=== PATIENT | male | born 1970 | race African-American/Black ===

== ENCOUNTER 2018-10-30 03:54 | Inpatient (IN) | payer SELFPAY ==
[2018-10-30] MEDS ORDERED: Nitroglycerin 2% Ointment 1 INCH/1 GM Packet ONE (04:36)
[2018-10-30] MEDS ORDERED: Nitroglycerin 0.4 MG TAB (25 Tab Bottle) ONE (04:36)
[2018-10-30 05:13] LABS: #Basophils 0.1 thou/uL (0.0-0.2); #Eosinphils 0.2 thou/uL (0.0-0.7); #Lymphocytes 2.6 thou/uL (1.20-3.40); #Monocytes 0.7 thou/uL (0.11-0.59); %Basophils 0.6 % (0.0-1.0); %Eosinophils 1.8 % (0.0-10.0); %Lymphocytes 22.5 % (21.0-51.0); %Monocytes 5.7 % (0.0-10.0); %Neutrophils 69.4 % (42.0-75.0); Hemoglobin 15.2 g/dL (14.0-18.0); Mean Corpuscular HGB CONC 33.1 g/dL (32.0-36.0); Mean Corpuscular Hemoglobin 28.8 pg (27.0-31.0); Mean Corpuscular Volume 87.1 fL (78.0-98.0); Mean Platelet Volume 7.9 fL (7.4-10.4); Platelet Count 396 thou/uL (130-400); RBC Distribution Width 13.3 % (11.5-14.5); Red Blood Cell (RBC) Count 5.28 mill/uL (4.70-6.10); White Blood Cell (WBC) Count 11.5 thou/uL (4.8-10.8)
[2018-10-30 05:37] LABS: ALT (SGPT) 33 U/L (8-55); AST (SGOT) 43 U/L (5-34); Albumin 4.3 g/dL (3.5-5.0); Alkaline Phosphatase 103 U/L (40-150); Anion Gap 15 mmol/L (10-20); BUN (Urea Nitrogen) 11 mg/dL (8.9-20.6); Bilirubin, Total 0.3 mg/dL (0.2-1.2); Calc. Creatinine Clearance 0 mL/min (70-130); Calcium 9.7 mg/dL (7.8-10.44); Carbon Dioxide 26 mmol/L (22-29); Chloride 101 mmol/L (98-107); Estimated GFR-MDRD Greater than 90; Globulin 3.6 g/dL (2.4-3.5); Lipase 23 U/L (8-78); Potassium 4.1 mmol/L (3.5-5.1); Protein, Total 7.9 g/dL (6.0-8.3); Sodium 138 mmol/L (136-145)
[2018-10-30 05:39] LABS: Glucose 59 mg/dL (70-105)
[2018-10-30] MEDS ORDERED: Enoxaparin Sodium 100 MG/ML SYRINGE ONE (06:04)
[2018-10-30 06:13] LABS: Amphetamine Detected (NotDetected); Barbiturates Screen Not Detected (NotDetected); Benzodiazepine Screen Not Detected (NotDetected); Cocaine Metabolite Screen Not Detected (NotDetected); Medtox Control Line Valid? VALID (VALID); Medtox Reader # READER 4; Methadone Not Detected (NotDetected); Methamphetamine Detected (NotDetected); Opiate Screen Not Detected (NotDetected); Oxycodone Screen Not Detected (NotDetected); Phencyclidine (PCP) Not Detected (NotDetected); THC/Cannabinoid Screen Detected (NotDetected); Tricyclic Screen Not Detected (NotDetected)
[2018-10-30] MEDS ORDERED: Dextrose 5 %-0.45 % NaCl 1,000 ML IV SCH (06:30)
[2018-10-30] MEDS ORDERED: Acetaminophen 325 MG TAB PO PRN (07:36)
[2018-10-30] MEDS ORDERED: Zolpidem Tartrate 5 MG TAB PO PRN (07:36)
[2018-10-30] MEDS ORDERED: Ondansetron PF 4 MG/2 ML Vial IVP PRN (07:36)
--- NOTE | 2018-10-30 08:25 | RAD ---
PORTABLE UPRIGHT FRONTAL CHEST RADIOGRAPH: DATE: 10/30/2018. COMPARISON: None. HISTORY: Chest pain. FINDINGS: Lungs are clear. Heart and mediastinal contours are unremarkable. Osseous structures demonstrate no acute findings. IMPRESSION: No acute findings. POS: [facility]
--- NOTE | 2018-10-30 08:41 | HP ---
PRIMARY CARE PROVIDER: None. [facility] [place] call admission for [facility]. Referred to [facility] Hospitalist Service by [facility] for chest pain. HISTORY OF PRESENT ILLNESS: History depends on whether you read the ER physician's notes or my current exam. ER physician's notes states that the patient has had chest pain for about two weeks off and on, worse now. The patient said to me that he had chest pain for about one week or so on the day of admission. It is stabbing, sternal. He gets numbness in his left arm with it at times. Is vague on duration, but it lasted for hours this time. It is worse with activity and anxiety, goes away with rest sometimes, happens maybe once or twice a day. No associated symptoms of nausea, sweats, or shortness of breath. PAST MEDICAL HISTORY: None. MEDICATIONS: None. ALLERGIES: NONE. PAST SURGICAL HISTORY: Appendectomy in his 30s. FAMILY HISTORY: Maternal grandmother had coronary artery disease, diabetes and hypertension. Mother has diabetes and hypertension. SOCIAL HISTORY: Engaged. Smokes maybe a pack a day. Drinks a few beers a day. Says he has done cocaine in the past, but none recently. Admits to [facility]. REVIEW OF SYSTEMS: CONSTITUTIONAL: Some dizziness with chest pain. EYES: He states he has cataracts and has diminished vision. No double vision or flashing lights. EARS, NOSE AND THROAT: No ear pain or drainage. No nasal bleeding. No trouble swallowing. CARDIAC: See present illness. No orthopnea or paroxysmal nocturnal dyspnea. RESPIRATIONS: No cough, wheezing, or asthma. GASTROINTESTINAL: No nausea, vomiting, abdominal pain, diarrhea, or constipation. GENITOURINARY: No hematuria or dysuria. MUSCULOSKELETAL: He states he swells in his arms occasionally. No swelling or pain in his legs. NEUROLOGICAL: No strokes, seizures, or focal weakness. PSYCHIATRIC: No anxiety or depression. SKIN: No bruising, bleeding, or rash. HEME/LYMPH: No tender or swollen lymph nodes in the axilla or inguinal cervical area. PHYSICAL EXAMINATION: VITAL SIGNS: His blood pressures ranged from 148/98 to 199/30, currently 170/116, pulse 84, respirations 14, temperature 98.8. HEAD, EYES, EARS, NOSE, AND THROAT: Revealed pupils equal, round, and reactive to light. Extraocular movements are intact. Sclerae are white. Tympanic membranes are clear. Nose is clear. Oral mucous membranes are wet. Dental hygiene is good. NECK: No jugular venous distention, adenopathy, or thyromegaly. CHEST: Clear to auscultation and percussion. HEART: Regular rate and rhythm. First and second heart sounds are clear. There are no appreciated murmurs or gallops. ABDOMEN: Soft. Bowel sounds are normal. There is no hepatosplenomegaly. No masses. No rebound. No bruits. EXTREMITIES: Showed no cyanosis, clubbing, or edema. Pulses; carotid, radial, femoral, and dorsalis pedis pulses intact and symmetric. SKIN: Warm and dry without bruises or rash. HEME/LYMPH: No tender, swollen lymph nodes in the axilla, inguinal, or cervical area. No petechial hemorrhages. NEUROLOGICAL: Cranial nerves 2 through 12 are intact. Moves all extremities. Sensation intact. DIAGNOSTIC DATA: EKG, regular sinus rhythm. ST-T segment changes in the lateral limb and precordial leads and the inferior leads suggestive of ischemia or repolarization abnormality, reviewed by me. Chest x-ray, no cardiomegaly, CHF or infiltrate, reviewed by me. LABORATORY DATA: Comprehensive metabolic profile; AST of 43, glucose is 59, CK is 729, CK-MB is 8.0, troponin is 0.526. D-dimer less than 0.27. CBC unremarkable, except for a modestly elevated white count at 11.5. Toxicology screen, positive for amphetamines, methamphetamines, and THC. ADMITTING DIAGNOSES: 1. Atypical chest pain. 2. Hypertensive urgency. 3. Abnormal toxicology screen. 4. Tobacco abuse. 5. THC abuse. PLAN: 1. Serial troponins. 2. I will start his antihypertensives with 1.25 mg of enalapril IV q.6 hours, troponins q.3 hours x3. I will give him aspirin today. We will discuss with Cardiology, the risk and benefit of a stress test. Job ID: [id number]
[2018-10-30] MEDS ORDERED: Iopamidol 370 76% 50 ML VIAL FS ONE (08:54)
[2018-10-30] MEDS ORDERED: Iopamidol 370 76% 100 ML VIAL ONE (08:54)
[2018-10-30 10:15] LABS: Troponin I 1.293 ng/mL (< 0.028)
[2018-10-30] MEDS: Enalaprilat Dihydrate 1.25 MG/ML VIAL SLOW IVP SCH ×3 (10:40→20:38)
[2018-10-30] MEDS: Famotidine/PF 20 mg/2ml Vial SLOW IVP SCH ×2 (10:40→20:38)
[2018-10-30 10:45] VITALS: BMI 30.9
[2018-10-30] MEDS ORDERED: Fentanyl 100 MCG/2 ML VIAL ONE (12:49)
[2018-10-30] MEDS ORDERED: Midazolam HCl 2 mg/2 ml Vial ONE (12:49)
[2018-10-30] MEDS ORDERED: Heparin 10,000 UNITS/1 ML VIAL ONE ×2 (13:00→13:47)
[2018-10-30] MEDS ORDERED: Nitroglycerin 100MG/250ML BOT 250 ML ONE (13:01)
[2018-10-30] MEDS ORDERED: TICAGRELOR 90 MG TABLET ONE (13:01)
[2018-10-30] MEDS ORDERED: Adenosine 6 MG/2 ML VIAL ONE (13:01)
[2018-10-30] MEDS ORDERED: Verapamil 5 MG/2 ML VIAL ONE (13:01)
[2018-10-30] MEDS ORDERED: Mag-Al 1200 mg/1200 mg/30 ML UDCUP PO PRN (13:47)
[2018-10-30] MEDS ORDERED: traMADol HCl 50 MG TAB PO PRN (13:47)
[2018-10-30] MEDS ORDERED: Acetaminophen/Codeine 30-300mg Tablet PO PRN (13:47)
[2018-10-30] MEDS ORDERED: Nitroglycerin 0.4 MG TAB (25 Tab Bottle) SL PRN (13:47)
[2018-10-30] MEDS ORDERED: Morphine 4 MG/ML VIAL SLOW IVP PRN (13:47)
[2018-10-30] MEDS ORDERED: Milk Of Magnesia 30 ML UDCUP PO PRN (13:47)
[2018-10-30] MEDS ORDERED: Sodium Chloride 0.9% 1,000 ML IV SCH (14:00)
--- NOTE | 2018-10-30 14:03 | CON ---
DATE OF CONSULTATION: 10/30/2018 REASON FOR CONSULTATION: Chest pain and elevated troponin. HISTORY OF PRESENT ILLNESS: Mr. Orellana is a 48-year-old gentleman, who has been evaluated by Cardiology in the past. He gives a history of having acute onset chest pain. He states he has had similar episodes in the past, this pain continued, it is moderate in nature. He presented to emergency room with elevated troponin in addition to abnormal EKG. He also tested positive for methamphetamines and amphetamines. PAST MEDICAL HISTORY: None. MEDICATIONS: None. ALLERGIES: NONE. PAST SURGICAL HISTORY: Appendectomy. FAMILY HISTORY: Negative for CAD. SOCIAL HISTORY: Positive tobacco use. He does smoke marijuana, but denies methamphetamine and amphetamine use. PHYSICAL EXAMINATION: GENERAL: The patient is a pleasant 48-year-old, who is in no acute distress. The patient appears their stated age. VITAL SIGNS: Blood pressure 140/103, pulse 93, temperature 98.2. NEUROLOGIC: The patient is alert and oriented x3 with no focal neurologic deficits. HEENT: Sclerae without icterus. Mouth has moist mucous membranes with normal pallor. NECK: No JVD. Carotid upstroke brisk. No bruits bilaterally. LUNGS: Clear to auscultation with unlabored respirations. BACK: No scoliosis or kyphosis. CARDIAC: Regular rate and rhythm with normal S1 and S2. No S3 or S4 noted. No significant rubs, murmurs, thrills, or gallops noted throughout the precordium. PMI is not displaced. There is no parasternal heave. ABDOMEN: Soft, nontender, nondistended. No peritoneal signs present. No hepatosplenomegaly. No abnormal striae. EXTREMITIES: 2+ femoral and 2+ dorsalis pedis pulses. No cyanosis, clubbing, or edema. SKIN: No gross abnormalities. PERTINENT LABORATORY DATA: Peak troponin 1.2. CBC and basic metabolic profile otherwise within normal limits. EKG showed normal sinus rhythm, ST, T waves suggesting ischemia noted laterally. IMPRESSION: 1. Unstable angina. 2. Illicit drug use. RECOMMENDATIONS: At this point, I would recommend coronary angiography with possible PCI. The patient did test positive for unstable angina with elevated troponin. This may be due to accelerated atherosclerosis versus spasm versus unstable plaque. I discussed the procedure in full detail with Mr. Mccracken. The risks of the procedure include but are not limited to the following: , stroke, MT, need for emergency surgery, loss of limb, bleeding, and infection, as well as a reaction to the dye causing kidney failure and needing long-term dialysis. I also discussed the risks of PCI to include all of the above including coronary dissection and perforation in addition to acute stent thrombosis and restenosis. All questions about the procedure were answered. Given the above, the patient agreed to proceed with coronary angiography and possible PCI His common-law was present. He states he can take Plavix if needed for more than six months, he can be compliant. He understands the risks of acute stent thrombosis and . Further recommendations depending on above. Job ID: [id number]
[2018-10-30] MEDS ORDERED: Morphine 2 MG/ML SYRINGE ONE (15:36)
[2018-10-30 16:57] LABS: Troponin I 2.224 ng/mL (< 0.028)
[2018-10-30] MEDS: Metoprolol Tartrate 25 MG TAB PO SCH (20:38)
[2018-10-30] MEDS: Atorvastatin Calcium 40 MG TAB PO SCH (20:39)
[2018-10-30] MEDS ORDERED: Prevnar 13-Val Conj/PF 0.5 ML SYRINGE IM ONE (21:00)
[2018-10-31] MEDS: Enalaprilat Dihydrate 1.25 MG/ML VIAL SLOW IVP SCH (04:11)
[2018-10-31 05:48] LABS: #Basophils 0.1 thou/uL (0.0-0.2); #Eosinphils 0.1 thou/uL (0.0-0.7); #Monocytes 0.9 thou/uL (0.11-0.59); #Neutrophils 7.1 thou/uL (1.40-6.50); %Basophils 0.5 % (0.0-1.0); %Eosinophils 1.1 % (0.0-10.0); %Lymphocytes 26.8 % (21.0-51.0); %Monocytes 7.9 % (0.0-10.0); %Neutrophils 63.7 % (42.0-75.0); Hemoglobin 13.4 g/dL (14.0-18.0); Mean Corpuscular HGB CONC 32.2 g/dL (32.0-36.0); Mean Corpuscular Hemoglobin 28.3 pg (27.0-31.0); Mean Corpuscular Volume 87.8 fL (78.0-98.0); Mean Platelet Volume 8.4 fL (7.4-10.4); Platelet Count 343 thou/uL (130-400); RBC Distribution Width 13.1 % (11.5-14.5); Red Blood Cell (RBC) Count 4.74 mill/uL (4.70-6.10); White Blood Cell (WBC) Count 11.1 thou/uL (4.8-10.8)
[2018-10-31 06:14] LABS: ALT (SGPT) 30 U/L (8-55); AST (SGOT) 30 U/L (5-34); Albumin 3.6 g/dL (3.5-5.0); Alkaline Phosphatase 97 U/L (40-150); Anion Gap 10 mmol/L (10-20); BUN (Urea Nitrogen) 13 mg/dL (8.9-20.6); Bilirubin, Total 0.2 mg/dL (0.2-1.2); Calc. Creatinine Clearance 144 mL/min (70-130); Carbon Dioxide 25 mmol/L (22-29); Chloride 106 mmol/L (98-107); Estimated GFR-MDRD Greater than 90; Globulin 2.8 g/dL (2.4-3.5); Glucose 119 mg/dL (70-105); Protein, Total 6.4 g/dL (6.0-8.3); Sodium 137 mmol/L (136-145)
--- NOTE | 2018-10-31 08:03 | PDOC.CTH ---
Cardiology Progress Note - Subjective Doing well - Objective Vital Signs Pulse Resp BP BP Pulse Ox 10/31/18 04:11 188/87 H 10/31/18 04:00 88 16 141/88 H 95 10/31/18 00:05 68 16 123/83 97 10/30/18 20:38 188/87 H Weight 209 lb 1.6 oz 10/30/18 10/31/18 11/01/18 06:59 06:59 06:59 Intake Total 400 Balance 400 - Physical Examination General/Neuro: alert & oriented x3, NAD Neck: carotid US brisk, no JVD present Lungs: CTA, unlabored respirations Heart: PMI normal, RRR Abdomen: NT/ND, soft Extremities: + femoral B - Labs Result Diagrams: 10/31/18 04:51 10/31/18 04:51 Troponin/CKMB CK-MB (CK-2) 8.0 ng/mL (0-6.6) H* 10/30/18 04:48 Troponin I 2.224 ng/mL (< 0.028) H* 10/30/18 16:10 - Assessment/Plan [place] CAD S/p stent to the LAD Recommend one more night given increased troponin to 2.1 on plavix, ASA, BB, ARB, statin no illicit drug use
--- NOTE | 2018-10-31 08:21 | PDOC.PN ---
- Subjective Encounter Start Date: 10/31/18 Encounter Start Time: 08:19 Subjective: no pain - Objective Resuscitation Status - Order Detail: 10/30/18 07:32 Resuscitation Status Routine Resuscitation Status: FULL: Full Resuscitation MAR Reviewed: Yes Vital Signs & Weight: Vital Signs (12 hours) Pulse Resp BP BP Pulse Ox 10/31/18 04:11 188/87 H 10/31/18 04:00 88 16 141/88 H 95 10/31/18 00:05 68 16 123/83 97 10/30/18 20:38 188/87 H Weight Weight 209 lb 1.6 oz I&O: 10/30/18 10/31/18 11/01/18 06:59 06:59 06:59 Intake Total 400 Balance 400 Result Diagrams: 10/31/18 04:51 10/31/18 04:51 Additional Labs: Accuchecks 10/31/18 10/30/18 10/30/18 08:03 17:53 11:13 POC Glucose 176 H 83 95 Phys Exam - Physical Examination Neck: no JVD Respiratory: clear to auscultation bilateral Cardiovascular: RRR, no significant murmur Gastrointestinal: soft, positive bowel sounds Musculoskeletal: no edema Dx/Plan (1) NSTEMI (non-ST elevated myocardial infarction) Code(s): I21.4 - NON-ST ELEVATION (NSTEMI) MYOCARDIAL INFARCTION Status: Acute (2) Hypertension, uncontrolled Code(s): I10 - ESSENTIAL (PRIMARY) HYPERTENSION Status: Acute (3) Tobacco abuse Code(s): Z72.0 - TOBACCO USE Status: Acute (4) Cannabis abuse Code(s): F12.10 - CANNABIS ABUSE, UNCOMPLICATED Status: Acute - Plan post pci to LAD -: ASA, plavix, statin, B-norah, ARB -: discussed with Cardiology * .
[2018-10-31] MEDS ORDERED: Aspirin 325 MG TAB PO SCH (09:00)
[2018-10-31] MEDS ORDERED: Lisinopril 2.5 MG TAB PO SCH ×4 (09:00→10:00)
[2018-10-31] MEDS ORDERED: Clopidogrel Bisulfate 300 MG TAB PO SCH (09:00)
[2018-10-31] MEDS: Famotidine/PF 20 mg/2ml Vial SLOW IVP SCH ×2 (09:09→20:33)
[2018-10-31] MEDS: Metoprolol Tartrate 25 MG TAB PO SCH ×2 (09:10→20:32)
[2018-10-31] MEDS: Atorvastatin Calcium 40 MG TAB PO SCH (20:32)
[2018-10-31] MEDS: Lisinopril 5 MG TAB PO SCH (20:32)
[2018-11-01] MEDS: Lisinopril 5 MG TAB PO SCH (08:29)
[2018-11-01] MEDS: Metoprolol Tartrate 25 MG TAB PO SCH (08:29)
[2018-11-01] MEDS: Famotidine/PF 20 mg/2ml Vial SLOW IVP SCH (08:32)
[2018-11-01] MEDS ORDERED: Clopidogrel Bisulfate 75 MG TAB PO SCH (09:00)
--- NOTE | 2018-11-01 11:18 | DIS ---
DATE OF ADMISSION: 10/30/2018 DATE OF DISCHARGE: 11/01/2018 TRANSFER OF CARE: [facility] call admission for [facility]. FINAL DIAGNOSES: 1. [id number] myocardial infarction. 2. Hypertensive urgency. 3. Tobacco abuse. 4. Cannabis abuse. DISCHARGE MEDICATIONS: 1. Plavix 75 mg a day. 2. Aspirin 81 mg a day. 3. Lisinopril 5 mg a day. 4. Metoprolol 25 mg twice a day. ALLERGIES: NONE. DIET: Heart healthy. PENDING AT TIME OF DISCHARGE: Nothing. CODE STATUS: Full. HOSPITAL COURSE: The patient admitted through [facility] with atypical chest pain. His EKG on admission was consistent with ischemia. CBCs showed only 11.5 white count, otherwise normal. His troponins were 0.5, 1.3, and 2.2. Comp metabolic profile normal except for a low blood sugar of 59 and AST of 43. Dr. Nair was consulted acutely. The patient was taken to the cardiac cardiac catheterization technologist, where he was found to have a 99% lesion in the proximal LAD, which was stented. The patient has had no recurrence of pain. He is doing well at this time. Vital signs; blood pressure 134/85, pulse 73, respirations 18, and temperature 98.1. Cardiorespiratory exam normal. He is being discharged. He is to see Dr. Nair in 1 week for followup. He has been told he needs to find a primary care. The patient has been cautioned about continuing smoking as it is dramatically increases his risk of further coronary artery disease. Job ID: [id number]
[2018-11-01 11:31] VITALS: TEMP 98.2
[2018-11-01 11:38] VITALS: BP 137/84
--- NOTE | 2018-11-01 14:46 | EKG ---
Test Reason : Blood Pressure : / mmHG Vent. Rate : 094 BPM Atrial Rate : 094 BPM P-R Int : 114 ms QRS Dur : 076 ms QT Int : 336 ms P-R-T Axes : 060 036 249 degrees QTc Int : 420 ms Normal sinus rhythm Possible Left atrial enlargement Septal infarct , age undetermined Left ventricular hypertrophy Abnormal ECG Confirmed by JESSICA RAJAN, HOWARD Rai ([id number]), editor managing newspaper SB VARGAS ([id number]) on 11/01/2018 2:46:05 PM Referred By: Confirmed By:HOWARD LOPEZ MD
== END 2018-11-01 12:13 | disposition home or self-care (01) | DRG 249 ==
LOC: ERS 03:54 → 2NO 08:16
PROVIDERS: ADMIT Internal Medicine; ATTEND Internal Medicine
PROC: 02703DZ Dilation of Coronary Artery, One Artery with Intraluminal Device, Percutaneous Approach (ICD-10-PCS; principal; 2018-10-30)
PROC: B240ZZ3 Ultrasonography of Single Coronary Artery, Intravascular (ICD-10-PCS; 2018-10-30)
PROC: 4A023N8 Measurement of Cardiac Sampling and Pressure, Bilateral, Percutaneous Approach (ICD-10-PCS; 2018-10-30)
PROC: B2111ZZ Fluoroscopy of Multiple Coronary Arteries using Low Osmolar Contrast (ICD-10-PCS; 2018-10-30)
DX: I21.4 Non-ST elevation (NSTEMI) myocardial infarction (principal); I16.0 Hypertensive urgency; I25.110 Atherosclerotic heart disease of native coronary artery with unstable angina pectoris; F17.210 Nicotine dependence, cigarettes, uncomplicated; F12.10 Cannabis abuse, uncomplicated
CPT/HCPCS: 36415; 36416; 71045; 76942; 80053; 80306; 82550; 82553; 83690; 84484; 85025; 85347; 85379; 90471; 90670; 90686; 92928; 92978; 93005; 93010; 93306; 93454; 93798; 96372; C1725; C1753; C1769; C1876; G0008; G0009; J0153; J1644; J1650; J2250; J2270; J3010; S0028

== ENCOUNTER 2019-02-07 17:05 | Observation (INO) | payer SELFPAY ==
--- NOTE | 2019-02-07 17:44 | RAD ---
CHEST ONE VIEW: 02/07/19 HISTORY: Chest pain. COMPARISON: Radiograph from 2018. FINDINGS: The lungs are clear. No pneumothorax or effusion. The cardiac silhouette and mediastinal contours are within normal limits. IMPRESSION: No acute intrathoracic abnormality. POS: [facility]
[2019-02-07 18:18] LABS: #Basophils 0.1 thou/uL (0.0-0.2); #Eosinphils 0.2 thou/uL (0.0-0.7); #Lymphocytes 3.3 thou/uL (1.20-3.40); #Monocytes 0.4 thou/uL (0.11-0.59); #Neutrophils 6.1 thou/uL (1.40-6.50); %Basophils 0.8 % (0.0-1.0); %Eosinophils 1.8 % (0.0-10.0); %Lymphocytes 32.5 % (21.0-51.0); %Neutrophils 60.9 % (42.0-75.0); Hemoglobin 15.7 g/dL (14.0-18.0); Mean Corpuscular HGB CONC 32.2 g/dL (32.0-36.0); Mean Corpuscular Hemoglobin 27.9 pg (27.0-31.0); Mean Corpuscular Volume 86.7 fL (78.0-98.0); Mean Platelet Volume 7.9 fL (7.4-10.4); Platelet Count 432 thou/uL (130-400); RBC Distribution Width 13.2 % (11.5-14.5); Red Blood Cell (RBC) Count 5.64 mill/uL (4.70-6.10)
[2019-02-07 18:39] LABS: ALT (SGPT) 41 U/L (8-55); AST (SGOT) 22 U/L (5-34); Albumin 4.5 g/dL (3.5-5.0); Alkaline Phosphatase 125 U/L (40-150); Anion Gap 15 mmol/L (10-20); BUN (Urea Nitrogen) 13 mg/dL (8.9-20.6); Bilirubin, Total 0.3 mg/dL (0.2-1.2); Calc. Creatinine Clearance 0 mL/min (70-130); Calcium 10.1 mg/dL (7.8-10.44); Carbon Dioxide 27 mmol/L (22-29); Chloride 102 mmol/L (98-107); Estimated GFR-MDRD Greater than 90; Globulin 3.1 g/dL (2.4-3.5); Glucose 106 mg/dL (70-105); Potassium 3.8 mmol/L (3.5-5.1); Protein, Total 7.6 g/dL (6.0-8.3); Sodium 140 mmol/L (136-145)
[2019-02-07] MEDS ORDERED: Nitroglycerin 2% Ointment 1 INCH/1 GM Packet ONE (18:56)
[2019-02-07] MEDS ORDERED: Aspirin Chewable 81 MG TAB ONE (18:56)
[2019-02-07 22:00] LABS: Troponin I 0.012 ng/mL (< 0.028)
[2019-02-07 22:04] VITALS: BMI 31.1
[2019-02-08] MEDS ORDERED: Nitroglycerin 0.4 MG TAB (25 Tab Bottle) SL PRN (00:14)
[2019-02-08] MEDS ORDERED: Ondansetron PF 4 MG/2 ML Vial IVP PRN (00:18)
[2019-02-08] MEDS ORDERED: Ondansetron ODT 4 MG TAB PO PRN (00:18)
[2019-02-08] MEDS ORDERED: Nicotine 14 MG PATCH TD SCH (00:30)
[2019-02-08 01:07] LABS: Troponin I Less than 0.010 ng/mL (< 0.028)
[2019-02-08 01:25] LABS: Amphetamine Not Detected (NotDetected); Barbiturates Screen Not Detected (NotDetected); Benzodiazepine Screen Not Detected (NotDetected); Cocaine Metabolite Screen Detected (NotDetected); Medtox Control Line Valid? VALID (VALID); Medtox Reader # READER 4; Methadone Not Detected (NotDetected); Methamphetamine Detected (NotDetected); Opiate Screen Not Detected (NotDetected); Oxycodone Screen Not Detected (NotDetected); Phencyclidine (PCP) Not Detected (NotDetected); THC/Cannabinoid Screen Detected (NotDetected); Tricyclic Screen Not Detected (NotDetected)
[2019-02-08] MEDS: Acetaminophen 325 MG TAB PO PRN ×2 (01:55→07:55)
--- NOTE | 2019-02-08 03:56 | HP ---
PRIMARY CARE PHYSICIAN: At [facility]. PRIMARY HIGH SCHOOL BAND TEACHER: Dr. Nair. CHIEF COMPLAINT: Chest pain. HISTORY OF PRESENT ILLNESS: Mr. Orellana is a 48-year-old male with past medical history of hypertension, hyperlipidemia, coronary artery disease, status post stents to LAD in October of 2018, who had presented to [facility] with chest pain that has been ongoing for the last week. The patient states chest pain started about 7 days ago and had been gradually getting worse to the point that is similar to what he felt back in October. He states that he has been going through a lot of stress with work and had recently lost his job. He states due to financial issues, he was not able to take his home medications. He states that he has not had his home medications in about 2 months. He states that he had recently seen his PCP who had sent a new prescription including a script for oral nitroglycerin 0.4 mg sublingual as needed for his chest pain. He states that he had not seen Dr. Nair, status post heart catheterization back in October and had admitted to being noncompliant since. During his initial workup in the emergency department, serial troponins were found to be negative x2. Blood pressure and other vital signs remained stable. EKG showing normal sinus rhythm with ST-T wave changes in the lateral leads. He had also underwent a chest x-ray was found to be unremarkable. He was given aspirin 325 mg oral and 1-inch of nitroglycerin paste, which seem to improve his symptoms. He was transferred to telemetry floor where he was seen and examined, he denied any fever, chills, any headache, blurred vision, or dizziness. He denied any chest pain at that time or shortness of breath, abdominal pain, nausea, or vomiting. His 3rd set of cardiac enzymes are pending at this time. Otherwise, other lab work unremarkable. It is determined that he will be admitted under observation, monitored overnight on telemetry, and Cardiology Services will be consulted for further evaluation. REVIEW OF SYSTEMS: All other systems reviewed and found to be negative unless mentioned in the HPI. PAST MEDICAL HISTORY: Hypertension, hyperlipidemia, and coronary artery disease. SURGICAL HISTORY: Appendectomy and cardiac stent placed in October 2018. PSYCHIATRIC HISTORY: Significant for anxiety and depression, however, does not take any medication for this. SOCIAL HISTORY: Does admit to social alcohol use about 1 to 2 times a week, currently smokes about a pack cigarettes per week, and does admit to marijuana and ecstasy use. KNOWN ALLERGIES: None. CURRENT HOME MEDICATIONS: 1. Aspirin 81 mg daily. 2. Clopidogrel 75 mg p.o. daily. 3. Lisinopril 5 mg p.o. b.i.d. 4. Metoprolol 25 mg p.o. b.i.d. 5. Nitroglycerin 0.4 mg sublingual every 5 minutes p.r.n. chest pain. 6. Atorvastatin 40 mg p.o. at bedtime. PHYSICAL EXAMINATION: VITAL SIGNS: BP 133/89, pulse 102, respirations 16, O2 saturation 99% on room air, temp 98.7 degrees Fahrenheit. GENERAL: The patient is awake, alert, and oriented x3, in no acute distress noted. HEENT: Atraumatic, normocephalic. Pupils are round and reactive to light. Extraocular muscles intact. Moist mucous membranes noted. Oropharynx is clear without exudates or erythema. NECK: Soft and supple. No JVD. No bruit noted. Trachea midline. CARDIOVASCULAR: Positive S1 and S2. Regular rate and rhythm. No murmur auscultated. RESPIRATORY: Clear to auscultation bilaterally. No wheezes, rales, or rhonchi. ABDOMEN: Soft and nontender. Bowel sounds present. MUSCULOSKELETAL: Strength 5+ bilaterally upper and lower extremities. Moves all extremities equal. No edema noted. SKIN: Warm, dry, and intact. No rashes or lesions noted. PSYCHIATRIC: Good mood and affect. LABORATORY DATA: WBC 10.0, RBC 5.64, hemoglobin 15.7, platelet 432. Sodium 140, potassium 3.8, anion gap 15, BUN 13, creatinine 1.03, estimated GFR greater than 90, glucose 106, AST 22, ALT 41. Troponin 0.015, 0.012. DIAGNOSTIC IMAGING: One-view chest x-ray shows no acute intrathoracic abnormality. ASSESSMENT AND PLAN: 1. Chest pain, the patient stated that his chest pain has been ongoing for the last week, however, over the last 3 to 4 days has been similar to what it was back in October when he had undergone cardiac catheterization with a stent placement. The patient will be placed on his home medications including aspirin and Plavix. He will also be started on Lovenox 1 mg/kg b.i.d. and placed on telemetry. Cardiology Services will be consulted for further evaluation and further recommendations. 2. History of coronary artery disease, status post stent placement, continue home regimen, and await further recommendations from Cardiology Services. Troponins negative x2 and awaiting 3rd series. 3. Hypertension, currently stable at this time. Continue on home regimen. 4. Hyperlipidemia. Continue on the patient's home statin. 5. Tobacco use, placed on nicotine patch daily and strongly recommended smoking cessation. 6. Further illicit drug use including marijuana and ecstasy, strongly recommended cessation. We will order urine drug screen. 7. Medication noncompliance due to financial reasons. The patient has not taken his home medications in about 2 months and had strongly recommended medication compliance from here on out. 8. Deep venous thrombosis and gastrointestinal prophylaxis. CODE STATUS: Full code. DISPOSITION: Pending further workup and clinical findings. Job ID: [id number]
[2019-02-08 05:41] LABS: #Basophils 0.1 thou/uL (0.0-0.2); #Eosinphils 0.2 thou/uL (0.0-0.7); #Lymphocytes 3.3 thou/uL (1.20-3.40); #Monocytes 0.8 thou/uL (0.11-0.59); #Neutrophils 6.8 thou/uL (1.40-6.50); %Eosinophils 1.8 % (0.0-10.0); %Lymphocytes 29.9 % (21.0-51.0); %Monocytes 6.8 % (0.0-10.0); %Neutrophils 60.6 % (42.0-75.0); Hemoglobin 13.7 g/dL (14.0-18.0); Mean Corpuscular HGB CONC 32.6 g/dL (32.0-36.0); Mean Corpuscular Hemoglobin 28.2 pg (27.0-31.0); Mean Corpuscular Volume 86.4 fL (78.0-98.0); Mean Platelet Volume 8.3 fL (7.4-10.4); Platelet Count 387 thou/uL (130-400); Red Blood Cell (RBC) Count 4.85 mill/uL (4.70-6.10); White Blood Cell (WBC) Count 11.2 thou/uL (4.8-10.8)
[2019-02-08 06:01] LABS: Anion Gap 14 mmol/L (10-20); BUN (Urea Nitrogen) 17 mg/dL (8.9-20.6); Calc. Creatinine Clearance 114 mL/min (70-130); Calcium 9.2 mg/dL (7.8-10.44); Carbon Dioxide 23 mmol/L (22-29); Cardiac Risk 3.4 (Less than 4.5); Chloride 105 mmol/L (98-107); Cholesterol 117 mg/dl (< 200 Desired); Estimated GFR-MDRD Greater than 90; Glucose 103 mg/dL (70-105); HDL Cholesterol 34 mg/dL (>60 Neg Risk); LDL Cholesterol, Calculated 71 mg/dL; Potassium 4.4 mmol/L (3.5-5.1); Sodium 138 mmol/L (136-145); Triglycerides 62 mg/dL (Less than 150)
[2019-02-08] MEDS ORDERED: Enoxaparin Sodium 100 MG/ML SYRINGE SC SCH (09:00)
[2019-02-08] MEDS ORDERED: Famotidine 20 MG TAB PO SCH (09:00)
[2019-02-08] MEDS ORDERED: Lisinopril 5 MG TAB PO SCH (09:00)
[2019-02-08] MEDS ORDERED: Clopidogrel Bisulfate 75 MG TAB PO SCH (09:00)
[2019-02-08] MEDS ORDERED: Metoprolol Tartrate 25 MG TAB PO SCH (09:00)
[2019-02-08] MEDS ORDERED: Aspirin Chewable 81 MG TAB PO SCH (09:00)
[2019-02-08 12:18] VITALS: BP 133/91; TEMP 97.7
[2019-02-08] MEDS ORDERED: Atorvastatin Calcium 40 MG TAB PO SCH (21:00)
--- NOTE | 2019-02-09 13:30 | DIS ---
DATE OF ADMISSION: 02/07/2019 DATE OF DISCHARGE: 02/08/2019 CONSULTING PHYSICIANS: None. DISCHARGE DIAGNOSES: 1. Chest pain, associated with cocaine use. 2. Coronary artery disease, status post stent placement. 3. Hypertension. 4. Hyperlipidemia. 5. Tobacco use. 6. Illicit drug use. 7. Medication noncompliance. HOSPITAL COURSE: Mr. Orellana is a 48-year-old man, who presented with complaints of chest pain associated with illicit drug use. His urine tox screen was positive for methamphetamines, cocaine, and cannabis. He underwent investigations including troponins, which were negative x3. Underwent a chest x-ray, which was unremarkable. The patient does have history of coronary artery disease and underwent a stent in October 2018. He has undergone an echo showing an EF of 50% to 55%. The patient has comorbidities as mentioned above and is noncompliant with his medications. He has not been cleared medically for discharge home. Plan discussed with Dr. Mortensen. Consultation had been placed initially with Dr. Montiel. However, this case was discussed with him and it was felt he did not require any assessment at this time. I advised to follow up with cardiology as an outpatient. REVIEW OF SYSTEMS: The patient has remained pain-free since admission. Denies having any shortness of breath. No cough or hemoptysis. Has not had any nausea or vomiting. No abdominal pain or cramping. He has been tolerating oral intake. Denies having any headaches or dizziness. No urinary symptoms. Moving bowels as normal. All other review of systems are negative. PHYSICAL EXAMINATION: GENERAL: The patient appears well developed, well nourished, is in no acute distress. VITAL SIGNS: Temperature 97.7, pulse 70, respirations 16, O2 saturation 95% on room air, BP 133/91. HEENT: Pupils are equal, round, and reactive to light. Sclerae are without icterus. Oropharynx is clear. NECK: Supple. No lymphadenopathy. LUNGS: Clear to auscultation bilaterally without wheezes, rales, or rhonchi. CARDIAC: Regular rate and rhythm without audible murmurs, rubs or gallops. ABDOMEN: Soft, nontender, nondistended with bowel sounds present. EXTREMITIES: No edema. NEUROLOGIC: Alert and oriented x3. SKIN: Without rash or jaundice. LABORATORY DATA: White blood count 11.2, hemoglobin 13.7, hematocrit 41.9, platelets 287. Sodium 138, potassium 4.4, chloride 105, BUN 17, creatinine 1.02. GFR greater than 90, glucose 103, calcium 9.2. LFTs unremarkable. Troponin negative x3. Urine tox screen positive for methamphetamines, cocaine and cannabinoids. IMAGING DATA: Chest x-ray unremarkable. DISCHARGE MEDICATIONS: The patient advised to resume home medications. Given a prescription for Pepcid 20 mg p.o. b.i.d. FOLLOWUP: The patient will follow up with his primary care physician at [facility]. CONDITION: Stable at discharge. DIET: Heart healthy. ACTIVITY: As tolerated. DISPOSITION: The patient is medically cleared for discharge home on 02/08/2019. Job ID: [id number]
== END 2019-02-08 13:41 | disposition home or self-care (01) ==
LOC: ERS 17:05 → 2SW 19:25
PROVIDERS: ADMIT Internal Medicine; ATTEND Internal Medicine
DX: R07.9 Chest pain, unspecified (principal); F14.90 Cocaine use, unspecified, uncomplicated; I25.10 Atherosclerotic heart disease of native coronary artery without angina pectoris; I10 Essential (primary) hypertension; E78.5 Hyperlipidemia, unspecified; F41.9 Anxiety disorder, unspecified; F32.9 Major depressive disorder, single episode, unspecified; F17.210 Nicotine dependence, cigarettes, uncomplicated; Z90.49 Acquired absence of other specified parts of digestive tract; Z95.5 Presence of coronary angioplasty implant and graft; Z91.14 Patient's other noncompliance with medication regimen; Z79.82 Long term (current) use of aspirin; Z79.02 Long term (current) use of antithrombotics/antiplatelets; Z79.899 Other long term (current) drug therapy
CPT/HCPCS: 36415; 71045; 80048; 80053; 80061; 80306; 84484; 85025; 93005; 94760; 96372; 99406; G0378; J1650

== ENCOUNTER 2020-11-03 09:57 | Emergency (ER) | payer SELFPAY ==
[~2020-11-03 09:57] MED LIST: Aspirin Chewable 81 MG TAB ONE; Heparin 10,000 UNITS/ 10 ML VIAL ONE; Metoprolol Tartrate 5 MG/5 ML VIAL ONE; Nitroglycerin 50 MG/250 ML BOT ONE; Sodium Chloride 0.9% 1,000 ML BAG ONE
[2020-11-03] MEDS ORDERED: Morphine 4 MG/ML VIAL ONE (10:32)
[2020-11-03] MEDS ORDERED: Ondansetron PF 4 MG/2 ML Vial ONE (10:32)
[2020-11-03] MEDS ORDERED: Nitroglycerin 2% Ointment 1 INCH/1 GM Packet ONE (10:39)
[2020-11-03 10:55] LABS: Hemoglobin 14.7 g/dL (14.0-18.0); Mean Corpuscular HGB CONC 32.3 g/dL (32.0-36.0); Mean Corpuscular Hemoglobin 27.8 pg (27.0-31.0); Mean Corpuscular Volume 86.3 fL (78.0-98.0); Mean Platelet Volume 8.6 fL (7.4-10.4); Platelet Count 333 thou/uL (130-400); Red Blood Cell (RBC) Count 5.27 mill/uL (4.70-6.10); White Blood Cell (WBC) Count 14.8 thou/uL (4.8-10.8)
--- NOTE | 2020-11-03 11:01 | RAD ---
XR Chest 1 View Portable History: Chest pain Comparison: Radiograph 2019 Findings: Lungs are hypoinflated with vascular crowding and spurious enlargement of the cardiac silho uette. Given this limitation there is no confluent airspace consolidation, pneumothorax or effusion. No acute osseous abnormality. Impression: No acute intrathoracic abnormality.
[2020-11-03 11:20] LABS: ALT (SGPT) 45 U/L (8-55); AST (SGOT) 55 U/L (5-34); Albumin 4.6 g/dL (3.5-5.0); Alkaline Phosphatase 104 U/L (40-110); Anion Gap 19 mmol/L (10-20); BUN (Urea Nitrogen) 18 mg/dL (8.9-20.6); Bilirubin, Total 0.4 mg/dL (0.2-1.2); Calc. Creatinine Clearance 0 mL/min (70-130); Calcium 9.8 mg/dL (7.8-10.44); Carbon Dioxide 24 mmol/L (22-29); Chloride 97 mmol/L (98-107); Globulin 3.7 g/dL (2.4-3.5); Glucose 178 mg/dL (70-105); Lipase 15 U/L (8-78); Protein, Total 8.3 g/dL (6.0-8.3); Sodium 136 mmol/L (136-145)
[2020-11-03 11:24] LABS: Acetaminophen Less than 6.0 mcg/mL (10.0-30.0); Alcohol Less than 10 mg/dL (Less than 10); Salicylate Less than 8.0 mg/dL (15.0-30.0)
[2020-11-03 11:31] LABS: Band 1 % (5-11); Lymphocytes 20 % (21-51); MDiff Complete? YES; Monocytes 5 % (0-10); Neutrophil 70 % (42-75); RBC Morphology Normal; Reactive Lymphocytes 4 % (0-10)
[2020-11-03 13:56] LABS: CKMB 20.1 ng/mL (0-6.6)
--- NOTE | 2020-11-08 15:20 | EKG ---
Test Reason : Blood Pressure : / mmHG Vent. Rate : 098 BPM Atrial Rate : 098 BPM P-R Int : 122 ms QRS Dur : 086 ms QT Int : 380 ms P-R-T Axes : 058 059 -66 degrees QTc Int : 485 ms Sinus rhythm with frequent Premature ventricular complexes in a pattern of bigeminy Possible Left atrial enlargement Anteroseptal infarct , possibly acute Marked ST abnormality, possible inferior subendocardial injury * ACUTE [place] * Abnormal ECG Confirmed by JERMAINE BELLA DO ([id number]), senior technical editor ALMA METCALF ([id number]) on 11/08/2020 3:20:01 PM Referred By: Confirmed By:JERMAINE BELLA DO
== END 2020-11-03 11:15 | disposition short-term general hospital (02) ==
LOC: ERS 09:57
DX: I21.3 ST elevation (STEMI) myocardial infarction of unspecified site (principal); I25.10 Atherosclerotic heart disease of native coronary artery without angina pectoris; E78.5 Hyperlipidemia, unspecified; E78.00 Pure hypercholesterolemia, unspecified; I10 Essential (primary) hypertension; F17.210 Nicotine dependence, cigarettes, uncomplicated
CPT/HCPCS: 71045; 80053; 80307; 82553; 83690; 83880; 84484; 85025; 93005; 96374; 96375; J1644; J2270; J2405; J7050

== ENCOUNTER 2022-02-22 14:22 | Observation (INO) | payer SELFPAY ==
[2022-02-22 15:16] LABS: #Basophils 0.1 thou/uL (0.0-0.2); #Eosinphils 0.2 thou/uL (0.0-0.7); #Lymphocytes 3.1 thou/uL (1.20-3.40); #Monocytes 0.6 thou/uL (0.11-0.59); #Neutrophils 6.5 thou/uL (1.40-6.50); %Basophils 0.7 % (0.0-1.0); %Monocytes 5.6 % (0.0-10.0); %Neutrophils 61.7 % (42.0-75.0); Hemoglobin 15.2 g/dL (14.0-18.0); Mean Corpuscular HGB CONC 31.3 g/dL (32.0-36.0); Mean Corpuscular Hemoglobin 28.6 pg (27.0-31.0); Mean Corpuscular Volume 91.4 fL (78.0-98.0); Mean Platelet Volume 7.8 fL (7.4-10.4); Platelet Count 412 thou/uL (130-400); RBC Distribution Width 14.6 % (11.5-14.5); Red Blood Cell (RBC) Count 5.33 mill/uL (4.70-6.10); White Blood Cell (WBC) Count 10.5 thou/uL (4.8-10.8)
[2022-02-22 15:40] LABS: ALT (SGPT) 25 U/L (8-55); AST (SGOT) 23 U/L (5-34); Albumin 4.4 g/dL (3.5-5.0); Alkaline Phosphatase 98 U/L (40-110); Anion Gap 12 mmol/L (10-20); BUN (Urea Nitrogen) 14 mg/dL (8.9-20.6); Bilirubin, Total 0.4 mg/dL (0.2-1.2); Calc. Creatinine Clearance 0 mL/min (70-130); Calcium 9.4 mg/dL (7.8-10.44); Carbon Dioxide 22 mmol/L (22-29); Chloride 103 mmol/L (98-107); Globulin 4.1 g/dL (2.4-3.5); Glucose 88 mg/dL (70-105); Potassium 4.3 mmol/L (3.5-5.1); Protein, Total 8.5 g/dL (6.0-8.3); Sodium 133 mmol/L (136-145)
[2022-02-22 15:52] LABS: Lipase 13 U/L (8-78)
[2022-02-22 15:53] LABS: CK (CPK) 156 U/L (30-200)
[2022-02-22] MEDS ORDERED: Nitroglycerin 2% Ointment 1 INCH/1 GM Packet ONE (15:57)
[2022-02-22] MEDS ORDERED: Aspirin Chewable 81 MG TAB ONE (15:57)
[2022-02-22] MEDS ORDERED: HYDROcodone/Acetaminophen 5/325 mg Tablet PO PRN (17:33)
[2022-02-22] MEDS ORDERED: Bisacodyl 5 MG TAB PO PRN (17:33)
[2022-02-22] MEDS ORDERED: Calcium Carbonate 500 MG ChewTAB PO PRN (17:33)
[2022-02-22] MEDS ORDERED: Bisacodyl 10 MG SUPP PR PRN (17:33)
[2022-02-22] MEDS ORDERED: Senokot S 8.6-50 MG TAB PO PRN (17:33)
[2022-02-22] MEDS ORDERED: Ondansetron PF 4 MG/2 ML Vial IVP PRN (17:33)
[2022-02-22] MEDS ORDERED: Melatonin 3 MG TAB PO PRN (17:40)
[2022-02-22] MEDS ORDERED: Nicotine 21 MG PATCH TD SCH (18:00)
[2022-02-22] MEDS ORDERED: Nitroglycerin 0.4 MG TAB (25 Tab Bottle) SL PRN (18:01)
[2022-02-22] MEDS ORDERED: Morphine 4 MG/ML VIAL SLOW IVP PRN ×2 (18:08→18:09)
[2022-02-22 19:37] VITALS: BMI 32.4
[2022-02-22 19:57] LABS: Troponin I 0.011 ng/mL (< 0.028)
[2022-02-22] MEDS ORDERED: Enoxaparin Sodium 40 MG/0.4 ML SYRINGE SC SCH (20:00)
[2022-02-22] MEDS: Acetaminophen 325 MG TAB PO PRN (20:17)
[2022-02-22] MEDS ORDERED: Atorvastatin Calcium 40 MG TAB PO SCH (21:00)
[2022-02-22 22:56] LABS: Troponin I 0.015 ng/mL (< 0.028)
[2022-02-23] MEDS: Acetaminophen 325 MG TAB PO PRN (01:37)
[2022-02-23 03:03] LABS: Amphetamine Not Detected (NotDetected); Barbiturates Screen Not Detected (NotDetected); Benzodiazepine Screen Detected (NotDetected); Cocaine Metabolite Screen Not Detected (NotDetected); Methadone Not Detected (NotDetected); Methamphetamine Detected (NotDetected); Opiate Screen Not Detected (NotDetected); Oxycodone Screen Not Detected (NotDetected); Phencyclidine (PCP) Not Detected (NotDetected); THC/Cannabinoid Screen Detected (NotDetected); Tricyclic Screen Not Detected (NotDetected)
[2022-02-23] MEDS: hydrALAZINE 20 MG/ML VIAL SLOW IVP PRN ×2 (03:09→12:19)
[2022-02-23 04:59] LABS: #Basophils 0.1 thou/uL (0.0-0.2); #Eosinphils 0.1 thou/uL (0.0-0.7); #Lymphocytes 2.4 thou/uL (1.20-3.40); #Monocytes 0.5 thou/uL (0.11-0.59); #Neutrophils 7.5 thou/uL (1.40-6.50); %Basophils 0.7 % (0.0-1.0); %Lymphocytes 22.3 % (21.0-51.0); %Monocytes 4.7 % (0.0-10.0); %Neutrophils 71.4 % (42.0-75.0); Hemoglobin 14.4 g/dL (14.0-18.0); Mean Corpuscular HGB CONC 31.4 g/dL (32.0-36.0); Mean Corpuscular Hemoglobin 27.9 pg (27.0-31.0); Mean Corpuscular Volume 88.9 fL (78.0-98.0); Mean Platelet Volume 7.7 fL (7.4-10.4); Platelet Count 429 thou/uL (130-400); RBC Distribution Width 14.4 % (11.5-14.5); Red Blood Cell (RBC) Count 5.14 mill/uL (4.70-6.10); White Blood Cell (WBC) Count 10.5 thou/uL (4.8-10.8)
[2022-02-23 05:22] LABS: ALT (SGPT) 23 U/L (8-55); AST (SGOT) 17 U/L (5-34); Albumin 4.2 g/dL (3.5-5.0); Alkaline Phosphatase 91 U/L (40-110); Anion Gap 13 mmol/L (10-20); BUN (Urea Nitrogen) 15 mg/dL (8.9-20.6); Bilirubin, Total 0.4 mg/dL (0.2-1.2); Calc. Creatinine Clearance 140 mL/min (70-130); Calcium 9.2 mg/dL (7.8-10.44); Carbon Dioxide 22 mmol/L (22-29); Cardiac Risk 4.1 (Less than 4.5); Chloride 104 mmol/L (98-107); Cholesterol 159 mg/dl (< 200 Desired); Globulin 3.4 g/dL (2.4-3.5); Glucose 126 mg/dL (70-105); HDL Cholesterol 39 mg/dL (>60 Neg Risk); LDL Cholesterol, Calculated 102 mg/dL; Potassium 3.8 mmol/L (3.5-5.1); Protein, Total 7.6 g/dL (6.0-8.3); Sodium 135 mmol/L (136-145); Triglycerides 88 mg/dL (Less than 150)
[2022-02-23] MEDS ORDERED: Enoxaparin Sodium 40 MG/0.4 ML SYRINGE SC SCH ×2 (09:00)
[2022-02-23] MEDS ORDERED: Pantoprazole 40 MG VIAL IVP SCH (09:00)
[2022-02-23] MEDS ORDERED: Regadenoson 0.4 MG/5 ML SYRINGE ONE (10:09)
[2022-02-23 10:45] LABS: SARS-CoV-2 PCR by NAA Not Detected (NotDetected)
[2022-02-23] MEDS ORDERED: Losartan 25 MG TAB PO SCH (15:15)
[2022-02-23] MEDS ORDERED: Carvedilol 6.25 MG TAB PO SCH ×2 (15:15→21:00)
[2022-02-23 15:25] VITALS: BP 140/96; TEMP 97.8
[2022-02-24] MEDS ORDERED: Losartan 25 MG TAB PO SCH (09:00)
== END 2022-02-23 17:00 | disposition home or self-care (01) ==
LOC: ERS 14:22 → 2SW 16:55
PROVIDERS: ADMIT Family Medicine; ATTEND Internal Medicine
DX: I16.0 Hypertensive urgency (principal); R07.89 Other chest pain; E87.1 Hypo-osmolality and hyponatremia; I25.110 Atherosclerotic heart disease of native coronary artery with unstable angina pectoris; I10 Essential (primary) hypertension; I25.5 Ischemic cardiomyopathy; F17.290 Nicotine dependence, other tobacco product, uncomplicated; Z20.822 Contact with and (suspected) exposure to COVID-19; F19.10 Other psychoactive substance abuse, uncomplicated; E78.5 Hyperlipidemia, unspecified; Z79.02 Long term (current) use of antithrombotics/antiplatelets; Z79.82 Long term (current) use of aspirin; Z79.899 Other long term (current) drug therapy; Z95.5 Presence of coronary angioplasty implant and graft
CPT/HCPCS: 36415; 71045; 78452; 80053; 80061; 80306; 82550; 83690; 83880; 84484; 85025; 85379; 93005; 93017; 93306; 96372; 96374; 96375; 96376; A9500; C9113; G0378; J0360; J1650; J2785; U0003; U0005

== ENCOUNTER 2022-02-28 23:53 | Emergency (ER) | payer OTHER, SELFPAY ==
[2022-03-01] MEDS ORDERED: Boostrix 0.5 ML (Tdap) VIAL ONE (00:14)
[2022-03-01 00:40] LABS: Hemoglobin 12.9 g/dL (14.0-18.0); Mean Corpuscular HGB CONC 32.1 g/dL (32.0-36.0); Mean Corpuscular Hemoglobin 28.8 pg (27.0-31.0); Mean Corpuscular Volume 89.9 fL (78.0-98.0); Mean Platelet Volume 7.7 fL (7.4-10.4); Platelet Count 403 thou/uL (130-400); RBC Distribution Width 14.2 % (11.5-14.5); Red Blood Cell (RBC) Count 4.46 mill/uL (4.70-6.10); White Blood Cell (WBC) Count 22.4 thou/uL (4.8-10.8)
[2022-03-01 00:51] LABS: Acetaminophen Less than 10.0 mcg/mL (10.0-30.0); Alcohol Less than 10 mg/dL (Less than 10); INR-International Normal Ratio 0.9; PTT 25.6 sec (22.9-36.1); Prothrombin Time 12.7 sec (12.0-14.7); Salicylate Less than 8.0 mg/dL (15.0-30.0)
[2022-03-01 00:52] LABS: ALT (SGPT) 71 U/L (8-55); AST (SGOT) 77 U/L (5-34); Alkaline Phosphatase 99 U/L (40-110); Anion Gap 14 mmol/L (10-20); BUN (Urea Nitrogen) 18 mg/dL (8.9-20.6); Bilirubin, Total 0.3 mg/dL (0.2-1.2); Calc. Creatinine Clearance 0 mL/min (70-130); Calcium 9.1 mg/dL (7.8-10.44); Carbon Dioxide 23 mmol/L (22-29); Chloride 104 mmol/L (98-107); Globulin 2.8 g/dL (2.4-3.5); Glucose 140 mg/dL (70-105); Lipase 16 U/L (8-78); Potassium 3.9 mmol/L (3.5-5.1); Protein, Total 6.8 g/dL (6.0-8.3); Sodium 137 mmol/L (136-145)
[2022-03-01 00:56] LABS: Band 2 % (5-11); Lymphocytes 13 % (21-51); MDiff Complete? YES; Monocytes 7 % (0-10); Neutrophil 78 % (42-75)
[2022-03-01] MEDS ORDERED: Ketorolac Tromethamine 30 MG/ML VIAL ONE (02:16)
[2022-03-01 02:27] LABS: CK (CPK) 312 U/L (30-200)
[2022-03-01] MEDS ORDERED: Iopamidol-370 76% 500 ML 1 ML ONE (12:51)
== END 2022-03-01 02:13 | disposition home or self-care (01) ==
LOC: ERS 23:53
DX: S00.03XA Contusion of scalp, initial encounter (principal); S00.81XA Abrasion of other part of head, initial encounter; S40.812A Abrasion of left upper arm, initial encounter; S30.810A Abrasion of lower back and pelvis, initial encounter; R10.814 Left lower quadrant abdominal tenderness; R10.813 Right lower quadrant abdominal tenderness; I25.10 Atherosclerotic heart disease of native coronary artery without angina pectoris; E78.5 Hyperlipidemia, unspecified; E78.00 Pure hypercholesterolemia, unspecified; I10 Essential (primary) hypertension; F17.210 Nicotine dependence, cigarettes, uncomplicated; Z23 Encounter for immunization; V48.5XXA Car driver injured in noncollision transport accident in traffic accident, initial encounter
CPT/HCPCS: 36415; 70450; 71045; 71260; 72125; 72170; 74177; 80053; 80307; 82550; 83605; 83690; 83880; 84484; 85025; 85610; 85730; 86850; 86900; 86901; 90471; 90715; 93005; 96374; G0390; J1885; Q9967